=== PATIENT | female | born 1950 | race Hispanic/Latino ===

== ENCOUNTER 2018-08-26 15:27 | Emergency (ER) | payer OTHER ==
[~2018-08-26] VITALS: Ht 157.5 cm; Wt 62.6 kg
[2018-08-26] MEDS ORDERED: MECLIZINE HCL 12.5 MG TAB PO ONE (16:30)
--- NOTE | 2018-08-26 19:22 | NUR ---
Per DIXIE Paredes labs or medication ordered not needed. Pt reports symptoms resolved. Denies any dizziness, SOB,N/V, or dizzness.
== END 2018-08-26 19:29 | disposition home or self-care (01) ==
LOC: ER 15:27
DX: R42 Dizziness and giddiness (principal); H81.11 Benign paroxysmal vertigo, right ear; I10 Essential (primary) hypertension; E78.5 Hyperlipidemia, unspecified; E07.9 Disorder of thyroid, unspecified; K21.9 Gastro-esophageal reflux disease without esophagitis
CPT/HCPCS: 93005; 99282; J8597